=== PATIENT | male | born 1945 | race Caucasian/White ===

== ENCOUNTER 2016-10-04 11:07 | Inpatient (IN) | payer MEDICARE, OTHER ==
[~2016-10-04] VITALS: Ht 172.7 cm; Wt 72.6 kg
--- NOTE | 2016-10-04 11:49 | Diagnostic Imaging Report ---
Indication: Code stroke. Dizziness Technique: Contiguous 5 mm thick transaxial imaging of the head obtained in a Siemens Sensation [address] scanner. Soft tissue and bone windows generated. Total Dose length Product (DLP): [address] Dose Index Volume (CTDIvol): 70.38 mGy Comparison: none Findings: There is moderate prominence of the ventricles, basal cisterns, and cerebral sulci consistent with atrophy. Moderate, nonspecific, white matter hypoattenuation is noted throughout the brain consistent with chronic small vessel disease. There is no midline shift, edema, acute hemorrhage, mass effect, or abnormal extra-axial fluid collections. Bones and extra osseous soft tissues are unremarkable. Impression: No acute intracranial bleed, mass effect or edema. Moderate atrophy of the brain. Evidence of chronic small vessel disease involving white matter tracts. Critical value communication. Findings were discussed via telephone with Dr. Lafleur at 11:44, 10/04/[address] scanner at [facility], [place] is accredited by the [employer] and the scans are performed using protocols designed to limit radiation exposure to as low as reasonably achievable to attain images of sufficient resolution adequate for diagnostic evaluation.
--- NOTE | 2016-10-04 11:59 | Diagnostic Imaging Report ---
Indication: Chest Pain Comparison: None A single view chest radiograph was obtained. Findings: No definite infiltrate or pulmonary vascular congestion identified. The heart is enlarged. The aorta is mildly enlarged consistent with atherosclerotic vascular disease. The bones are osteopenic. Impression: No acute disease
[2016-10-04 12:05] LABS: BASOPHILS % (AUTO) 1.1 % (0.0-2.0); EOSINOPHILS % (AUTO) 3.5 % (0.0-3.0); LYMPHOCYTES % (AUTO) 18.9 % (20.0-45.0); MEAN CORPUSCULAR HEMOGLOBIN 29.2 PG (27.0-31.0); MEAN CORPUSCULAR HGB CONC 34.5 G/DL (32.0-36.0); MEAN CORPUSCULAR VOLUME 85 FL (80-99); MEAN PLATELET VOLUME 8.4 FL (6.5-10.1); MONOCYTES % (AUTO) 10.9 % (1.0-10.0); NEUTROPHILS % (AUTO) 65.5 % (45.0-75.0); PLATELET COUNT 269 K/UL (150-450); RED BLOOD COUNT 4.55 M/UL (4.70-6.10); RED CELL DISTRIBUTION WIDTH 11.2 % (11.6-14.8)
[2016-10-04 12:13] LABS: ALANINE AMINOTRANSFERASE 14 U/L (3-41); ALBUMIN/GLOBULIN RATIO 1.1 (1.0-2.7); ASPARTATE AMINO TRANSFERASE 17 U/L (5-40); CARBON DIOXIDE 28 mEQ/L (20-30); CREATININE 3.2 mg/dL (0.7-1.2); TROPONIN I < 0.30 ng/mL (<=0.30)
[2016-10-04 12:14] LABS: ANION GAP 12 (5-15); CALCIUM 15.1 mg/dL (8.6-10.2); CHLORIDE 95 mEQ/L (98-107); CHOLESTEROL 158 mg/dL (< 200); CHOLESTEROL/HDL RATIO 5.9 (3.3-4.4); HEMOLYSIS 5; LDL CHOLESTEROL (CALC.) 90 mg/dL (60-99); POTASSIUM 4.1 mEQ/L (3.4-4.9); SODIUM 135 mEQ/L (135-145)
[2016-10-04 12:20] LABS: PROTHROMBIN TIME 9.9 SEC (9.30-11.50)
[2016-10-04 12:23] VITALS: BP 140/80
[2016-10-04 12:24] LABS: CKMB 2.9 ng/mL (< 6.7)
[2016-10-04 13:08] VITALS: BP 129/86
--- NOTE | 2016-10-04 13:41 | Emergency Room Report ---
History of Present Illness General Chief Complaint: Stroke Symptoms Source: Patient Present Illness HPI 70-year-old male brought to ED for evaluation. Patient was brought to ER because his animal warden that he was having a stroke. States that for the last 5 days he's been having frequent falls, has hit his head on occasion. Patient denies any slurred speech or facial droop. Denies any dizziness, chest pain or shortness of breath. denies any weakness. No other aggravating or relieving factors. Denies any other associated symptoms Allergies: Coded Allergies: No Known Allergies (Unverified , 10/04/16) Patient History Past Medical History: none Past Surgical History: none Pertinent Family History: none Social History: Denies: alcohol use, drug use, smoking Immunizations: UTD Reviewed Nursing Documentation: PMH: Agreed, PSxH: Agreed Nursing Documentation-PMH Past Medical History: No Stated History Review of Systems All Other Systems: negative except mentioned in HPI Physical Exam Vital Signs Date Time Temp Pulse Resp B/P Pulse Ox O2 Delivery O2 Flow Rate FiO2 10/04/16 11:23 97.3 72 16 155/53 99 Room Air Sp02 EP Interpretation: reviewed, normal General Appearance: no apparent distress, alert, GCS 15, non-toxic Head: normocephalic Eyes: bilateral eye PERRL, bilateral eye normal inspection ENT: normal ENT inspection Neck: normal inspection Respiratory: chest non-tender, lungs clear, normal breath sounds, speaking full sentences Cardiovascular #1: regular rate, rhythm, no edema Gastrointestinal: normal bowel sounds, non tender, soft, non-distended, no guarding, no rebound Rectal: deferred Genitourinary: no CVA tenderness Musculoskeletal: normal inspection Neurologic: alert, oriented x3, responsive, line up machine operator III-XII nml as tested, motor strength/tone normal, sensory intact, cerebellar normal, speech normal Psychiatric: judgement/insight normal, memory normal, mood/affect normal, no suicidal/homicidal ideation Skin: normal inspection Lymphatic: normal inspection Medical Decision Making Diagnostic Impression: Primary Impression: Dizziness Additional Impressions: Unsteady gait ARF (acute renal failure) Qualified Codes: N17.9 - Acute kidney failure, unspecified Hypercalcemia ER Course Hospital Course 70-year-old male presents to ED with dizziness, frequent falls, head trauma Differential diagnoses include: AR/unstable angina, arrythmia, dehydration, CVA/ TIA Clinical course Patient placed on stretcher. on panama hat hydraulic press operator. After initial history and physical I ordered labs, EKG, chest x-ray, IVFs, CT Brain labs reviewed- no leukocytosis, hemoglobin/hematocrit ok, Cr 3.2, Calcium elevated, trop negative No focal neurological deficits suggestive of stroke EKG- NSR, no acute ischemic changes Chest x-ray- no acute process CT brain-unremarkable Case discussed with Dr. hoang and he agreed to accept the patient to his service for further care and support I. I feel this is a highly complex case requiring extensive working including EKG/Rhythm strip, Xray/CT/US, Blood/urine lab work, repeat exams while in ED, and administration of strong opiates/narcotics for pain control, admission to hospital or close patient follow up. Diagnosis - dizziness, unsteady gait, ARF, hypercalcemia admitted to telemetry in serious condition Labs Test 10/04/16 11:20 White Blood Count 9.0 K/UL (4.8-10.8) Red Blood Count 4.55 M/UL (4.70-6.10) Hemoglobin 13.3 G/DL (14.2-18.0) Hematocrit 38.5 % (42.0-52.0) Mean Corpuscular Volume 85 FL (80-99) Mean Corpuscular Hemoglobin 29.2 PG (27.0-31.0) Mean Corpuscular Hemoglobin Concent 34.5 G/DL (32.0-36.0) Red Cell Distribution Width 11.2 % (11.6-14.8) Platelet Count 269 K/UL (150-450) Mean Platelet Volume 8.4 FL (6.5-10.1) Neutrophils (%) (Auto) 65.5 % (45.0-75.0) Lymphocytes (%) (Auto) 18.9 % (20.0-45.0) Monocytes (%) (Auto) 10.9 % (1.0-10.0) Eosinophils (%) (Auto) 3.5 % (0.0-3.0) Basophils (%) (Auto) 1.1 % (0.0-2.0) Prothrombin Time 9.9 SEC (9.30-11.50) Prothromb Time International Ratio 1.0 (0.9-1.1) Activated Partial Thromboplast Time 23 SEC (23-33) Sodium Level 135 mEQ/L (135-145) Potassium Level 4.1 mEQ/L (3.4-4.9) Chloride Level 95 mEQ/L (98-107) Carbon Dioxide Level 28 mEQ/L (20-30) Anion Gap 12 (5-15) Blood Urea Nitrogen 49 mg/dL (7-23) Creatinine 3.2 mg/dL (0.7-1.2) Estimat Glomerular Filtration Rate mL/min (>60) Glucose Level 125 mg/dL (74-106) Calcium Level 15.1 mg/dL (8.6-10.2) Total Bilirubin 0.3 mg/dL (0.0-1.2) Aspartate Amino Transf (AST/SGOT) 17 U/L (5-40) Alanine Aminotransferase (ALT/SGPT) 14 U/L (3-41) Alkaline Phosphatase 79 U/L (40-129) Total Creatine Kinase 73 U/L (38-174) Creatine Kinase MB 2.9 ng/mL (< 6.7) Creatine Kinase MB Relative Index 3.9 Troponin I < 0.30 ng/mL (<=0.30) Total Protein 7.0 g/dL (6.6-8.7) Albumin 3.8 g/dL (3.5-5.2) Globulin 3.2 g/dL Albumin/Globulin Ratio 1.1 (1.0-2.7) Triglycerides Level 206 mg/dL (< 150) Cholesterol Level 158 mg/dL (< 200) LDL Cholesterol 90 mg/dL (60-99) HDL Cholesterol 27 mg/dL (> 60) Cholesterol/HDL Ratio 5.9 (3.3-4.4) EKG Diagnostic Results Rate: normal Rhythm: NSR ST Segments: other - RBBB ASA given to the pt in ED: No Rhythm Strip Diag. Results EP Interpretation: yes Rhythm: NSR, no PVC's, no ectopy Chest X-Ray Diagnostic Results EP Interpretation: Yes Findings: no consolidation, no effusion, no pneumothorax, no acute cardiopulmonary disease Number of Views: 1 CT/MRI/US Diagnostic Results CT/MRI/US Diagnostic Results : Imaging Test Ordered: CT A/P Impression no acute process Last Vital Signs Date Time Temp Pulse Resp B/P Pulse Ox O2 Delivery O2 Flow Rate FiO2 10/04/16 13:08 97.0 71 20 129/86 96 Room Air Status: improved Disposition: ADMITTED INPATIENT Condition: Serious Referrals: NOT CHOSEN IPA/,REFERRING (PCP) ASA [facility] M.D. Oct 04, 2016 13:41
[2016-10-04] MEDS ORDERED: VITAMIN D1000 UNI1 ORAL (14:08)
[2016-10-04 14:52] VITALS: BP 123/62
[2016-10-04] MEDS ORDERED: Mylanta II UD 30ml ORAL PRN (22:30)
[2016-10-04] MEDS ORDERED: Morphine Sulfate 2mg/ml Inj IVP PRN (22:30)
[2016-10-04] MEDS ORDERED: Miralax 17gm pkt ORAL PRN (22:30)
[2016-10-04] MEDS ORDERED: LORazepam Inj 2mg/ml 1ml IV PRN (22:30)
[2016-10-04] MEDS: D5NS 1,000 ML IV SCH (23:31)
[2016-10-05] VITALS (7 sets, daily range): BP systolic 130–190; BP diastolic 62–92
[2016-10-05] MEDS: Zolpidem 5mg tab ORAL PRN (00:37)
[2016-10-05] MEDS: D5NS 1,000 ML IV SCH ×3 (06:43→22:02)
[2016-10-05 07:22] LABS: APPEARANCE,URINE CLEAR; KETONES,URINE NEGATIVE (NEGATIVE); LEUKOCYTE ESTERASE ,URINE NEGATIVE (NEGATIVE); NITRITE,URINE NEGATIVE (NEGATIVE); PH,URINE 7 (4.5-8.0); PROTEIN,URINE 1+ (NEGATIVE); UROBILINOGEN,URINE NORMAL MG/DL (0.0-1.0)
[2016-10-05 07:36] LABS: BACTERIA,URINE OCCASIONAL /HPF; SQUAMOUS EPITHELIAL CELL,UR OCCASIONAL /LPF (NONE/OCC); WBC,URINE 0-2 /HPF (0 - 0)
[2016-10-05 08:27] LABS: BASOPHILS % (AUTO) 1.1 % (0.0-2.0); EOSINOPHILS % (AUTO) 4.8 % (0.0-3.0); LYMPHOCYTES % (AUTO) 23.7 % (20.0-45.0); MEAN CORPUSCULAR HEMOGLOBIN 29.6 PG (27.0-31.0); MEAN CORPUSCULAR HGB CONC 34.8 G/DL (32.0-36.0); MEAN CORPUSCULAR VOLUME 85 FL (80-99); MEAN PLATELET VOLUME 8.7 FL (6.5-10.1); MONOCYTES % (AUTO) 9.5 % (1.0-10.0); NEUTROPHILS % (AUTO) 60.9 % (45.0-75.0); PLATELET COUNT 265 K/UL (150-450); RED BLOOD COUNT 4.59 M/UL (4.70-6.10); RED CELL DISTRIBUTION WIDTH 11.3 % (11.6-14.8); WHITE BLOOD COUNT 7.3 K/UL (4.8-10.8)
[2016-10-05 08:52] LABS: FREE T3 3.2 pg/mL (2.3-4.2)
[2016-10-05 08:55] LABS: ALANINE AMINOTRANSFERASE 17 U/L (3-41); CHLORIDE 97 mEQ/L (98-107); CHOLESTEROL 165 mg/dL (< 200); CHOLESTEROL/HDL RATIO 5.9 (3.3-4.4); POTASSIUM 4.1 mEQ/L (3.4-4.9); SODIUM 138 mEQ/L (135-145)
[2016-10-05 08:57] LABS: MAGNESIUM 2.4 mg/dL (1.7-2.5); PHOSPHORUS 3.4 mg/dL (2.5-4.8); URIC ACID 8.2 mg/dL (3.0-7.5)
[2016-10-05] MEDS: Heparin 5000 units/ml inj SUBQ SCH ×2 (09:00→21:59)
[2016-10-05 09:03] LABS: HEMOGLOBIN A1C 5.5 % (< 6.0)
[2016-10-05 09:21] LABS: ALBUMIN/GLOBULIN RATIO 1.1 (1.0-2.7); ANION GAP 14 (5-15); ASPARTATE AMINO TRANSFERASE 17 U/L (5-40); CARBON DIOXIDE 27 mEQ/L (20-30); CREATININE 3.3 mg/dL (0.7-1.2); HEMOLYSIS 4; LDL CHOLESTEROL (CALC.) 100 mg/dL (60-99); TOTAL PROTEIN 7.2 g/dL (6.6-8.7)
[2016-10-05 09:50] LABS: CALCIUM 13.6 mg/dL (8.6-10.2)
--- NOTE | 2016-10-05 11:53 | Consultation ---
Consult Note Consult Note asked to eval for renal failure and hyperCalcemia Chief Complaint: Stroke Symptoms 70-year-old male brought to ED for evaluation. Patient was brought to ER because his insurance counsel that he was having a stroke. States that for the last 5 days he's been having frequent falls, has hit his head on occasion. Patient denies any slurred speech or facial droop. Denies any dizziness, chest pain or shortness of breath. denies any weakness. No other aggravating or relieving factors. Denies any other associated symptoms PH non obtainable Patinet interviewed , examined , Data reviewed . Assessment/Plan Status: ARF (acute renal failure), with possible underlying CKD Hypercalcemia Other: Dizziness Unsteady gait ARF (acute renal failure) Hypercalcemia Plan: Hydrate- Nasal Calcitonin IV Aredia Monitor Ca Phos and renal parameters- Kidney RAGHU CHAMBERLAIN Oct 05, 2016 11:53
--- NOTE | 2016-10-05 12:17 | Cardiology Progress Note ---
Assessment/Plan Assessment/Plan imbalance / fall hypercalcemia renal failure orthostatic vitals ivf as per renal consider neuro evlation for possible NPH Objective Last 24 Hour Vital Signs Date Time Temp Pulse Resp B/P Pulse Ox O2 Delivery O2 Flow Rate FiO2 10/05/16 08:00 96.9 77 18 151/87 96 Room Air 10/05/16 04:04 98.6 84 20 137/92 95 Room Air 10/05/16 04:00 73 10/05/16 00:16 98.1 80 21 130/79 97 Room Air 10/05/16 00:00 71 10/04/16 14:52 75 20 123/62 94 Room Air 10/04/16 13:08 97.0 71 20 129/86 96 Room Air 10/04/16 12:23 69 16 140/80 96 Room Air Intake and Output 10/04/16 10/05/16 18:59 06:59 Intake Total 1000 ml 892 ml Output Total 800 ml Balance 1000 ml 92 ml Intake Oral 0 ml IV Total 1000 ml 892 ml Output Urine Total 800 ml # Voids 1 Laboratory Tests Test 10/05/16 06:00 10/05/16 07:45 Urine Color Pale yellow Urine Appearance Clear Urine pH 7 (4.5-8.0) Urine Specific [place] 1.015 (1.005-1.035) Urine Protein 1+ (NEGATIVE) H Urine Glucose (UA) Negative (NEGATIVE) Urine Ketones Negative (NEGATIVE) Urine Occult Blood 2+ (NEGATIVE) H Urine Nitrite Negative (NEGATIVE) Urine Bilirubin Negative (NEGATIVE) Urine Urobilinogen Normal MG/DL (0.0-1.0) Urine Leukocyte Esterase Negative (NEGATIVE) Urine RBC 2-4 /HPF (0 - 0) H Urine WBC 0-2 /HPF (0 - 0) Urine Squamous Epithelial Cells Occasional /LPF Urine Bacteria Occasional /HPF (NONE) Urine Eosinophils Few Urine Osmolality Pending White Blood Count 7.3 K/UL (4.8-10.8) Red Blood Count 4.59 M/UL (4.70-6.10) L Hemoglobin 13.6 G/DL (14.2-18.0) L Hematocrit 39.0 % (42.0-52.0) L Mean Corpuscular Volume 85 FL (80-99) Mean Corpuscular Hemoglobin 29.6 PG (27.0-31.0) Mean Corpuscular Hemoglobin Concent 34.8 G/DL (32.0-36.0) Red Cell Distribution Width 11.3 % (11.6-14.8) L Platelet Count 265 K/UL (150-450) Mean Platelet Volume 8.7 FL (6.5-10.1) Neutrophils (%) (Auto) 60.9 % (45.0-75.0) Lymphocytes (%) (Auto) 23.7 % (20.0-45.0) Monocytes (%) (Auto) 9.5 % (1.0-10.0) Eosinophils (%) (Auto) 4.8 % (0.0-3.0) H Basophils (%) (Auto) 1.1 % (0.0-2.0) Sodium Level 138 mEQ/L (135-145) Potassium Level 4.1 mEQ/L (3.4-4.9) Chloride Level 97 mEQ/L (98-107) L Carbon Dioxide Level 27 mEQ/L (20-30) Anion Gap 14 (5-15) Blood Urea Nitrogen 46 mg/dL (7-23) H Creatinine 3.3 mg/dL (0.7-1.2) H Estimat Glomerular Filtration Rate mL/min (>60) Glucose Level 109 mg/dL (74-106) H Hemoglobin A1c 5.5 % (< 6.0) Plasma/Serum Osmolality Pending Uric Acid 8.2 mg/dL (3.0-7.5) H Calcium Level 13.6 mg/dL (8.6-10.2) *H Calcium (Send out) Pending Phosphorus Level 3.4 mg/dL (2.5-4.8) Magnesium Level 2.4 mg/dL (1.7-2.5) Total Bilirubin 0.5 mg/dL (0.0-1.2) Aspartate Amino Transf (AST/SGOT) 17 U/L (5-40) Alanine Aminotransferase (ALT/SGPT) 17 U/L (3-41) Alkaline Phosphatase 81 U/L (40-129) Total Creatine Kinase 73 U/L (38-174) Total Protein 7.2 g/dL (6.6-8.7) Albumin 3.9 g/dL (3.5-5.2) Globulin 3.3 g/dL Albumin/Globulin Ratio 1.1 (1.0-2.7) Triglycerides Level 185 mg/dL (< 150) H Cholesterol Level 165 mg/dL (< 200) LDL Cholesterol 100 mg/dL (60-99) H HDL Cholesterol 28 mg/dL (> 60) Cholesterol/HDL Ratio 5.9 (3.3-4.4) H Thyroid Stimulating Hormone (TSH) 3.420 uIU/mL (0.300-4.500) Free Thyroxine 1.31 ng/dL (0.86-1.85) Free Triiodothyronine 3.2 pg/mL (2.3-4.2) Parathyroid Hormone (Intact) Pending Cortisol Pending GILMA BRITTON Oct 05, 2016 12:17
--- NOTE | 2016-10-05 13:14 | History and Physical ---
History of Present Illness General Date patient seen: Oct 05, 2016 Reason for Hospitalization: Stroke Symptoms Present Illness HPI 70-year-old male brought in by paramedics to ED for evaluation of possible stroke. For the last 5 days he's been having frequent falls, has hit his head on occasion. Patient blames his shoes for the episodes of fall. Denies any dizziness, chest pain or shortness of breath. denies any weakness. No other aggravating or relieving factors. He was found to have an elevated Ca and admitted for further work up. Allergies: Coded Allergies: No Known Allergies (Unverified , 10/04/16) Medication History Scheduled Cholecalciferol (Vitamin D3)* (Vitamin D*), Unknown Dose ORAL DAILY, (Reported) Patient History Healthcare decision maker pt alert and oriented Resuscitation status Advanced Directive on File Past Medical/Surgical History Past Medical/Surgical History: (1) Unsteady gait Review of Systems All Other Systems: negative except mentioned in HPI Physical Exam General Appearance: WD/WN Lines, tubes and drains: peripheral, central line HEENT: normocephalic, atraumatic Neck: non-tender, normal alignment Respiratory/Chest: chest wall non-tender, lungs clear Cardiovascular/Chest: normal peripheral pulses Genitourinary/Rectal: normal genital exam Extremities: normal range of motion Last 24 Hour Vital Signs Date Time Temp Pulse Resp B/P Pulse Ox O2 Delivery O2 Flow Rate FiO2 10/05/16 12:00 97.1 16 190/62 98 Room Air 10/05/16 08:00 96.9 77 18 151/87 96 Room Air 10/05/16 04:04 98.6 84 20 137/92 95 Room Air 10/05/16 04:00 73 10/05/16 00:16 98.1 80 21 130/79 97 Room Air 10/05/16 00:00 71 10/04/16 14:52 75 20 123/62 94 Room Air Intake and Output 10/04/16 10/05/16 19:00 07:00 Intake Total 1000 ml 932 ml Output Total 800 ml Balance 1000 ml 132 ml Intake Oral 0 ml IV Total 1000 ml 932 ml Output Urine Total 800 ml # Voids 1 Laboratory Tests Test 10/05/16 06:00 10/05/16 07:45 Urine Color Pale yellow Urine Appearance Clear Urine pH 7 (4.5-8.0) Urine Specific [place] 1.015 (1.005-1.035) Urine Protein 1+ (NEGATIVE) H Urine Glucose (UA) Negative (NEGATIVE) Urine Ketones Negative (NEGATIVE) Urine Occult Blood 2+ (NEGATIVE) H Urine Nitrite Negative (NEGATIVE) Urine Bilirubin Negative (NEGATIVE) Urine Urobilinogen Normal MG/DL (0.0-1.0) Urine Leukocyte Esterase Negative (NEGATIVE) Urine RBC 2-4 /HPF (0 - 0) H Urine WBC 0-2 /HPF (0 - 0) Urine Squamous Epithelial Cells Occasional /LPF Urine Bacteria Occasional /HPF (NONE) Urine Eosinophils Few Urine Osmolality Pending White Blood Count 7.3 K/UL (4.8-10.8) Red Blood Count 4.59 M/UL (4.70-6.10) L Hemoglobin 13.6 G/DL (14.2-18.0) L Hematocrit 39.0 % (42.0-52.0) L Mean Corpuscular Volume 85 FL (80-99) Mean Corpuscular Hemoglobin 29.6 PG (27.0-31.0) Mean Corpuscular Hemoglobin Concent 34.8 G/DL (32.0-36.0) Red Cell Distribution Width 11.3 % (11.6-14.8) L Platelet Count 265 K/UL (150-450) Mean Platelet Volume 8.7 FL (6.5-10.1) Neutrophils (%) (Auto) 60.9 % (45.0-75.0) Lymphocytes (%) (Auto) 23.7 % (20.0-45.0) Monocytes (%) (Auto) 9.5 % (1.0-10.0) Eosinophils (%) (Auto) 4.8 % (0.0-3.0) H Basophils (%) (Auto) 1.1 % (0.0-2.0) Sodium Level 138 mEQ/L (135-145) Potassium Level 4.1 mEQ/L (3.4-4.9) Chloride Level 97 mEQ/L (98-107) L Carbon Dioxide Level 27 mEQ/L (20-30) Anion Gap 14 (5-15) Blood Urea Nitrogen 46 mg/dL (7-23) H Creatinine 3.3 mg/dL (0.7-1.2) H Estimat Glomerular Filtration Rate mL/min (>60) Glucose Level 109 mg/dL (74-106) H Hemoglobin A1c 5.5 % (< 6.0) Plasma/Serum Osmolality Pending Uric Acid 8.2 mg/dL (3.0-7.5) H Calcium Level 13.6 mg/dL (8.6-10.2) *H Calcium (Send out) Pending Phosphorus Level 3.4 mg/dL (2.5-4.8) Magnesium Level 2.4 mg/dL (1.7-2.5) Total Bilirubin 0.5 mg/dL (0.0-1.2) Aspartate Amino Transf (AST/SGOT) 17 U/L (5-40) Alanine Aminotransferase (ALT/SGPT) 17 U/L (3-41) Alkaline Phosphatase 81 U/L (40-129) Total Creatine Kinase 73 U/L (38-174) Total Protein 7.2 g/dL (6.6-8.7) Albumin 3.9 g/dL (3.5-5.2) Globulin 3.3 g/dL Albumin/Globulin Ratio 1.1 (1.0-2.7) Triglycerides Level 185 mg/dL (< 150) H Cholesterol Level 165 mg/dL (< 200) LDL Cholesterol 100 mg/dL (60-99) H HDL Cholesterol 28 mg/dL (> 60) Cholesterol/HDL Ratio 5.9 (3.3-4.4) H Thyroid Stimulating Hormone (TSH) 3.420 uIU/mL (0.300-4.500) Free Thyroxine 1.31 ng/dL (0.86-1.85) Free Triiodothyronine 3.2 pg/mL (2.3-4.2) Parathyroid Hormone (Intact) Pending Cortisol Pending Height (Feet): 5 Height (Inches): 8.00 Weight (Pounds): 160 Medications Current Medications Medications (Trade) Dose Ordered Sig/Leta Route PRN Reason Start Time Stop Time Status Last Admin Dose Admin Acetaminophen (Tylenol) 650 mg Q4H PRN ORAL fever 10/04/16 22:30 11/03/16 22:29 Clonidine HCl 0.1 mg 0.1 mg Q4H PRN ORAL For High Blood Pressure 10/04/16 22:30 11/03/16 22:29 Dextrose (Dextrose 50%) STAT PRN IV Hypoglycemia 10/04/16 22:30 11/03/16 22:29 Dextrose/Sodium Chloride (D5ns) 1,000 ml @ 125 mls/hr Q8H IV 10/04/16 22:30 11/03/16 22:29 10/05/16 06:43 Heparin Sodium (Porcine) (Heparin 5000 units/ml) 5,000 units EVERY 12 HOURS SUBQ 10/05/16 09:00 11/04/16 08:59 Lorazepam (Ativan 2mg/ml 1ml) 0.5 mg Q4H PRN IV For Anxiety 10/04/16 22:30 10/11/16 22:29 Morphine Sulfate (Morphine Sulfate) 1 mg EVERY 4 HOURS PRN IVP For Pain 10/04/16 22:30 10/11/16 22:29 Ondansetron HCl (Zofran) 4 mg Q6H PRN IVP Nausea & Vomiting 10/04/16 22:30 11/03/16 22:29 Pamidronate Disodium/Sodium Chloride (Aredia/NS) 550 ml @ 137.5 mls/ hr ONCE ONCE IVPB 10/05/16 14:00 10/05/16 17:59 Polyethylene Glycol (Miralax) 17 gm HSPRN PRN ORAL Constipation 10/04/16 22:30 11/03/16 22:29 Tamsulosin HCl 0.4 mg 0.4 mg Q12HR ORAL 10/05/16 13:00 11/04/16 12:59 Zolpidem Tartrate (Ambien) 5 mg HSPRN PRN ORAL Insomnia 10/04/16 22:30 11/03/16 22:29 10/05/16 00:37 Assessment/Plan Problem List: (1) Acute encephalopathy ICD Codes: G93.40 - Encephalopathy, unspecified SNOMED: 6651911 (2) Hypercalcemia ICD Codes: E83.52 - Hypercalcemia SNOMED: 32304866, [id number] Assessment/Plan telemetry monitoring echo carotid artery US IV fluids hypercalcemia w/u, r/o malignancy, r/o hyperparathyroidism. pt/ot SILVINA ORELLANA Oct 05, 2016 13:14
[2016-10-05] MEDS: Tamsulosin 0.4mg cap ORAL SCH ×2 (13:20→21:58)
[2016-10-05] MEDS ORDERED: Pamidronate Disodium Inj 60 MG in Sodium Chloride 550 ML IVPB ONE (14:00)
[2016-10-05] MEDS ORDERED: D5NS 1000ml IV ONE (18:47)
[2016-10-06] VITALS (7 sets, daily range): BP systolic 110–149; BP diastolic 66–88
[2016-10-06] MEDS: D5NS 1,000 ML IV SCH ×4 (06:27→22:00)
[2016-10-06 07:56] LABS: EOSINOPHILS % (AUTO) 5.9 % (0.0-3.0); LYMPHOCYTES % (AUTO) 22.1 % (20.0-45.0); MEAN CORPUSCULAR HEMOGLOBIN 29.7 PG (27.0-31.0); MEAN CORPUSCULAR VOLUME 85 FL (80-99); MEAN PLATELET VOLUME 8.4 FL (6.5-10.1); MONOCYTES % (AUTO) 10.8 % (1.0-10.0); NEUTROPHILS % (AUTO) 60.3 % (45.0-75.0); PLATELET COUNT 221 K/UL (150-450); RED BLOOD COUNT 4.12 M/UL (4.70-6.10); RED CELL DISTRIBUTION WIDTH 11.2 % (11.6-14.8); WHITE BLOOD COUNT 6.4 K/UL (4.8-10.8)
[2016-10-06 08:08] LABS: ALANINE AMINOTRANSFERASE 14 U/L (3-41); ALBUMIN/GLOBULIN RATIO 1.2 (1.0-2.7); ANION GAP 10 (5-15); ASPARTATE AMINO TRANSFERASE 13 U/L (5-40); CALCIUM 12.4 mg/dL (8.6-10.2); CARBON DIOXIDE 29 mEQ/L (20-30); CHLORIDE 102 mEQ/L (98-107); CREATININE 3.1 mg/dL (0.7-1.2); CRP QUANT 0.7 mg/dL (< 0.5); HEMOLYSIS 5; MAGNESIUM 2.2 mg/dL (1.7-2.5); PHOSPHORUS 2.9 mg/dL (2.5-4.8); POTASSIUM 3.9 mEQ/L (3.4-4.9); SODIUM 141 mEQ/L (135-145); TOTAL PROTEIN 6.4 g/dL (6.6-8.7); URIC ACID 7.8 mg/dL (3.0-7.5)
[2016-10-06] MEDS: Heparin 5000 units/ml inj SUBQ SCH ×2 (08:46→20:44)
[2016-10-06 09:08] LABS: CORTISOL LC 14.1 ug/dL (.)
[2016-10-06] MEDS: Tamsulosin 0.4mg cap ORAL SCH ×2 (09:08→20:41)
--- NOTE | 2016-10-06 13:11 | General Progress Note ---
Assessment/Plan Status: stable Status Narrative Cr lower- Ca lower Assessment/Plan ARF (acute renal failure), with possible underlying CKD Severe Hypercalcemia Other: Dizziness Unsteady gait ARF (acute renal failure) Hypercalcemia Plan: Hydrate- Nasal Calcitonin IV Aredia given 10/05/16 Monitor Ca Phos and renal parameters- Kidney CHRISTOPHER- pending One dose IV lasix Subjective ROS Limited/Unobtainable: No Constitutional: Reports: malaise Allergies: Coded Allergies: No Known Allergies (Unverified , 10/04/16) Objective Last 24 Hour Vital Signs Date Time Temp Pulse Resp B/P Pulse Ox O2 Delivery O2 Flow Rate FiO2 10/06/16 12:00 84 10/06/16 11:55 89 10/06/16 11:50 97.0 77 18 124/74 97 Room Air 10/06/16 11:50 77 10/06/16 08:09 97.0 82 20 149/88 97 Room Air 10/06/16 04:15 98.5 81 20 149/86 94 Room Air 10/06/16 04:00 73 10/06/16 00:05 78 80 91 10/06/16 00:04 98.8 78 21 142/78 95 Room Air 10/06/16 00:00 74 10/05/16 22:46 78 86 90 10/05/16 20:00 94 10/05/16 20:00 97.3 86 20 144/75 97 Room Air 10/05/16 16:00 74 10/05/16 16:00 97.5 79 20 135/76 96 Room Air Intake and Output 10/05/16 10/06/16 19:00 07:00 Intake Total 1635 ml 1000 ml Output Total 760 ml 700 ml Balance 875 ml 300 ml Intake Oral 560 ml IV Total 1075 ml 1000 ml Output Urine Total 760 ml 700 ml # Voids 3 2 Laboratory Tests 10/06/16 06:55: White Blood Count 6.4, Red Blood Count 4.12L, Hemoglobin 12.2L, Hematocrit 35.0L , Mean Corpuscular Volume 85, Mean Corpuscular Hemoglobin 29.7, Mean Corpuscular Hemoglobin Concent 35.0, Red Cell Distribution Width 11.2L, Platelet Count 221, Mean Platelet Volume 8.4, Neutrophils (%) (Auto) 60.3, Lymphocytes (%) (Auto) 22.1, Monocytes (%) (Auto) 10.8H, Eosinophils (%) (Auto) 5.9H, Basophils (%) (Auto) 1.0, Sodium Level 141, Potassium Level 3.9, Chloride Level 102, Carbon Dioxide Level 29, Anion Gap 10, Blood Urea Nitrogen 41H, Creatinine 3.1H, Estimat Glomerular Filtration Rate , Glucose Level 99, Uric Acid 7.8H, Calcium Level 12.4H, Phosphorus Level 2.9, Magnesium Level 2.2, Total Bilirubin 0.4, Gamma Glutamyl Transpeptidase 21, Aspartate Amino Transf ( AST/SGOT) 13, Alanine Aminotransferase (ALT/SGPT) 14, Alkaline Phosphatase 71, Total Creatine Kinase 75, C-Reactive Protein, Quantitative 0.7H, Pro-B-Type Natriuretic Peptide 1873H, Total Protein 6.4L, Albumin 3.6, Globulin 2.8, Albumin/Globulin Ratio 1.2 Height (Feet): 5 Height (Inches): 8.00 Weight (Pounds): 160 General Appearance: no apparent distress Cardiovascular: normal rate Respiratory/Chest: decreased breath sounds Abdomen: soft, distended RAGHU ANGELO Oct 06, 2016 13:10
[2016-10-06 13:18] LABS: PTH INTACT 16 pg/mL (15-65)
--- NOTE | 2016-10-06 15:06 | Pulmonology Progress Note ---
Assessment/Plan Problems: (1) Acute encephalopathy (2) Hypercalcemia (3) ATN (acute tubular necrosis) Assessment/Plan iv fluids check bun/creatinine renal studies pt/ot dc in 1-2 days Subjective ROS Limited/Unobtainable: No Constitutional: Reports: no symptoms HEENT: Repors: no symptoms Respiratory: Reports: no symptoms Allergies: Coded Allergies: No Known Allergies (Unverified , 10/04/16) Objective Last 24 Hour Vital Signs Date Time Temp Pulse Resp B/P Pulse Ox O2 Delivery O2 Flow Rate FiO2 10/06/16 12:00 84 10/06/16 11:57 80 10/06/16 11:55 89 10/06/16 11:50 97.0 77 18 124/74 97 Room Air 10/06/16 11:50 77 10/06/16 08:09 97.0 82 20 149/88 97 Room Air 10/06/16 08:02 76 10/06/16 04:15 98.5 81 20 149/86 94 Room Air 10/06/16 04:00 73 10/06/16 00:05 78 80 91 10/06/16 00:04 98.8 78 21 142/78 95 Room Air 10/06/16 00:00 74 10/05/16 22:46 78 86 90 10/05/16 20:00 94 10/05/16 20:00 97.3 86 20 144/75 97 Room Air 10/05/16 16:00 74 10/05/16 16:00 97.5 79 20 135/76 96 Room Air Intake and Output 10/05/16 10/06/16 19:00 07:00 Intake Total 1635 ml 1000 ml Output Total 760 ml 700 ml Balance 875 ml 300 ml Intake Oral 560 ml IV Total 1075 ml 1000 ml Output Urine Total 760 ml 700 ml # Voids 3 2 Objective General Appearance: WD/WN Lines, tubes and drains: peripheral, central line HEENT: normocephalic, atraumatic Neck: non-tender, normal alignment Respiratory/Chest: chest wall non-tender, lungs clear Cardiovascular/Chest: normal peripheral pulses Genitourinary/Rectal: normal genital exam Extremities: normal range of motion Laboratory Tests 10/06/16 06:55: White Blood Count 6.4, Red Blood Count 4.12L, Hemoglobin 12.2L, Hematocrit 35.0L , Mean Corpuscular Volume 85, Mean Corpuscular Hemoglobin 29.7, Mean Corpuscular Hemoglobin Concent 35.0, Red Cell Distribution Width 11.2L, Platelet Count 221, Mean Platelet Volume 8.4, Neutrophils (%) (Auto) 60.3, Lymphocytes (%) (Auto) 22.1, Monocytes (%) (Auto) 10.8H, Eosinophils (%) (Auto) 5.9H, Basophils (%) (Auto) 1.0, Sodium Level 141, Potassium Level 3.9, Chloride Level 102, Carbon Dioxide Level 29, Anion Gap 10, Blood Urea Nitrogen 41H, Creatinine 3.1H, Estimat Glomerular Filtration Rate , Glucose Level 99, Uric Acid 7.8H, Calcium Level 12.4H, Phosphorus Level 2.9, Magnesium Level 2.2, Total Bilirubin 0.4, Gamma Glutamyl Transpeptidase 21, Aspartate Amino Transf ( AST/SGOT) 13, Alanine Aminotransferase (ALT/SGPT) 14, Alkaline Phosphatase 71, Total Creatine Kinase 75, C-Reactive Protein, Quantitative 0.7H, Pro-B-Type Natriuretic Peptide 1873H, Total Protein 6.4L, Albumin 3.6, Globulin 2.8, Albumin/Globulin Ratio 1.2 Current Medications Medications (Trade) Dose Ordered Sig/Leta Route PRN Reason Start Time Stop Time Status Last Admin Dose Admin Acetaminophen (Tylenol) 650 mg Q4H PRN ORAL fever 10/04/16 22:30 11/03/16 22:29 Calcitonin [place] (Miacalcin) 1 sprays DAILY NASAL 10/06/16 15:00 11/05/16 14:59 10/06/16 14:47 Clonidine HCl (Catapres) 0.1 mg Q4H PRN ORAL For High Blood Pressure 10/04/16 22:30 11/03/16 22:29 Dextrose (Dextrose 50%) STAT PRN IV Hypoglycemia 10/04/16 22:30 11/03/16 22:29 Dextrose/Sodium Chloride (D5ns) 1,000 ml @ 150 mls/hr Q6H40M IV 10/06/16 14:00 11/05/16 13:59 10/06/16 13:42 Heparin Sodium (Porcine) (Heparin 5000 units/ml) 5,000 units EVERY 12 HOURS SUBQ 10/05/16 09:00 11/04/16 08:59 10/05/16 21:59 Lorazepam (Ativan 2mg/ml 1ml) 0.5 mg Q4H PRN IV For Anxiety 10/04/16 22:30 10/11/16 22:29 Morphine Sulfate (Morphine Sulfate) 1 mg EVERY 4 HOURS PRN IVP For Pain 10/04/16 22:30 10/11/16 22:29 Ondansetron HCl (Zofran) 4 mg Q6H PRN IVP Nausea & Vomiting 10/04/16 22:30 11/03/16 22:29 Polyethylene Glycol (Miralax) 17 gm HSPRN PRN ORAL Constipation 10/04/16 22:30 11/03/16 22:29 Tamsulosin HCl 0.4 mg 0.4 mg Q12HR ORAL 10/05/16 13:00 11/04/16 12:59 10/06/16 09:08 Zolpidem Tartrate (Ambien) 5 mg HSPRN PRN ORAL Insomnia 10/04/16 22:30 11/03/16 22:29 10/05/16 00:37 SILVINA ORELLANA Oct 06, 2016 15:06
--- NOTE | 2016-10-06 16:19 | Diagnostic Imaging Report ---
Indication:Elevated Bun and Creatinine. Technique: Grayscale and duplex Doppler imaging of the kidneys performed. Comparison: None Findings: There is suggestion of a small cyst in the lower pole the right kidney measuring 1.5 cm. Questionable tiny stone in the right kidney noted. The echogenic focus is very peripheral, into question whether this is a stone or a focus of other parenchymal calcification. There is early no hydronephrosis. Urinary bladder and IVC are unremarkable in appearance. Both kidneys are about 12 cm in size. The renal pyramids are hypoechoic. Impression: Right renal cyst. No evidence of obstructive nephropathy. Tiny peripheral calcification in the right kidney, nonspecific. This is doubtful to represent a nonobstructive stone
--- NOTE | 2016-10-06 20:19 | Cardiology Progress Note ---
Assessment/Plan Assessment/Plan imbalance / fall hypercalcemia renal failure orthostatic vitals ivf as per renal consider neuro evlation for possible NPH rxn for hypercalcemia tele neg he still seem off balbnce on standign Subjective Cardiovascular: Denies: chest pain, irregular heart rate Respiratory: Denies: SOB with excertion, shortness of breath Gastrointestinal/Abdominal: Denies: abdominal pain Objective Last 24 Hour Vital Signs Date Time Temp Pulse Resp B/P Pulse Ox O2 Delivery O2 Flow Rate FiO2 10/06/16 16:40 82 10/06/16 16:35 88 10/06/16 16:30 80 10/06/16 16:21 97.0 80 20 119/66 96 Room Air 10/06/16 15:20 83 10/06/16 12:00 84 10/06/16 11:57 80 10/06/16 11:55 89 10/06/16 11:50 97.0 77 18 124/74 97 Room Air 10/06/16 11:50 77 10/06/16 08:09 97.0 82 20 149/88 97 Room Air 10/06/16 08:02 76 10/06/16 04:15 98.5 81 20 149/86 94 Room Air 10/06/16 04:00 73 10/06/16 00:05 78 80 91 10/06/16 00:04 98.8 78 21 142/78 95 Room Air 10/06/16 00:00 74 10/05/16 22:46 78 86 90 General Appearance: no apparent distress, alert Neck: no JVD Cardiovascular: normal rate, regular rhythm Respiratory/Chest: lungs clear, normal breath sounds Abdomen: normal bowel sounds, non tender, soft Extremities: no swelling Intake and Output 10/05/16 10/06/16 19:00 07:00 Intake Total 1635 ml 1000 ml Output Total 760 ml 700 ml Balance 875 ml 300 ml Intake Oral 560 ml IV Total 1075 ml 1000 ml Output Urine Total 760 ml 700 ml # Voids 3 2 Laboratory Tests Test 10/06/16 06:55 White Blood Count 6.4 K/UL (4.8-10.8) Red Blood Count 4.12 M/UL (4.70-6.10) L Hemoglobin 12.2 G/DL (14.2-18.0) L Hematocrit 35.0 % (42.0-52.0) L Mean Corpuscular Volume 85 FL (80-99) Mean Corpuscular Hemoglobin 29.7 PG (27.0-31.0) Mean Corpuscular Hemoglobin Concent 35.0 G/DL (32.0-36.0) Red Cell Distribution Width 11.2 % (11.6-14.8) L Platelet Count 221 K/UL (150-450) Mean Platelet Volume 8.4 FL (6.5-10.1) Neutrophils (%) (Auto) 60.3 % (45.0-75.0) Lymphocytes (%) (Auto) 22.1 % (20.0-45.0) Monocytes (%) (Auto) 10.8 % (1.0-10.0) H Eosinophils (%) (Auto) 5.9 % (0.0-3.0) H Basophils (%) (Auto) 1.0 % (0.0-2.0) Sodium Level 141 mEQ/L (135-145) Potassium Level 3.9 mEQ/L (3.4-4.9) Chloride Level 102 mEQ/L (98-107) Carbon Dioxide Level 29 mEQ/L (20-30) Anion Gap 10 (5-15) Blood Urea Nitrogen 41 mg/dL (7-23) H Creatinine 3.1 mg/dL (0.7-1.2) H Estimat Glomerular Filtration Rate mL/min (>60) Glucose Level 99 mg/dL (74-106) Uric Acid 7.8 mg/dL (3.0-7.5) H Calcium Level 12.4 mg/dL (8.6-10.2) H Phosphorus Level 2.9 mg/dL (2.5-4.8) Magnesium Level 2.2 mg/dL (1.7-2.5) Total Bilirubin 0.4 mg/dL (0.0-1.2) Gamma Glutamyl Transpeptidase 21 U/L (8-61) Aspartate Amino Transf (AST/SGOT) 13 U/L (5-40) Alanine Aminotransferase (ALT/SGPT) 14 U/L (3-41) Alkaline Phosphatase 71 U/L (40-129) Total Creatine Kinase 75 U/L (38-174) C-Reactive Protein, Quantitative 0.7 mg/dL (< 0.5) H Pro-B-Type Natriuretic Peptide 1873 pg/mL (0-125) H Total Protein 6.4 g/dL (6.6-8.7) L Albumin 3.6 g/dL (3.5-5.2) Globulin 2.8 g/dL Albumin/Globulin Ratio 1.2 (1.0-2.7) GILMA BRITTON Oct 06, 2016 20:19
[2016-10-06] MEDS: Zolpidem 5mg tab ORAL PRN (21:03)
[2016-10-06] MEDS ORDERED: Zolpidem 5mg tab ORAL PRN (22:30)
[2016-10-06] MEDS ORDERED: Miralax 17gm pkt ORAL PRN (22:30)
[2016-10-06] MEDS ORDERED: LORazepam Inj 2mg/ml 1ml IV PRN (22:30)
[2016-10-07] VITALS: BP 131/70
[2016-10-07] MEDS ORDERED: Morphine Sulfate 2mg/ml Inj IVP PRN (01:00)
[2016-10-07 04:00] VITALS: BP 130/78
[2016-10-07] MEDS: D5NS 1,000 ML IV SCH ×4 (05:00→23:32)
[2016-10-07 07:27] LABS: ALANINE AMINOTRANSFERASE 14 U/L (3-41); ALBUMIN/GLOBULIN RATIO 1.3 (1.0-2.7); ANION GAP 13 (5-15); ASPARTATE AMINO TRANSFERASE 16 U/L (5-40); CALCIUM 11.8 mg/dL (8.6-10.2); CARBON DIOXIDE 27 mEQ/L (20-30); CHLORIDE 101 mEQ/L (98-107); CREATININE 2.9 mg/dL (0.7-1.2); HEMOLYSIS 10; PHOSPHORUS 3.2 mg/dL (2.5-4.8); POTASSIUM 3.5 mEQ/L (3.4-4.9); SODIUM 141 mEQ/L (135-145); TOTAL PROTEIN 6.3 g/dL (6.6-8.7)
[2016-10-07 08:35] VITALS: BP 138/70
[2016-10-07] MEDS: Tamsulosin 0.4mg cap ORAL SCH ×2 (09:32→21:02)
[2016-10-07] MEDS: Heparin 5000 units/ml inj SUBQ SCH ×2 (09:36→21:05)
--- NOTE | 2016-10-07 10:58 | Cardiology Report ---
APPROVED REPORT EKG Measurement Heart [id number] Normal sinus rhythm Left axis deviation Incomplete right bundle branch block Nonspecific ST and T wave abnormality Abnormal ECG
[2016-10-07 11:24] VITALS: BP 115/70
--- NOTE | 2016-10-07 12:27 | General Progress Note ---
Assessment/Plan Status: unchanged Status Narrative cr lower 2.9- Serum Ca lowering Assessment/Plan ARF (acute renal failure), with possible underlying CKD Severe Hypercalcemia Other: Dizziness Unsteady gait ARF (acute renal failure) Hypercalcemia Plan: Hydrate- Nasal Calcitonin IV Aredia given 10/05/16 Monitor Ca Phos and renal parameters- Kidney CHRISTOPHER- Right renal cyst. No evidence of obstructive nephropathy. Tiny peripheral calcification in the right kidney, nonspecific. This is doubtful to represent a nonobstructive stone One dose IV lasix again today Subjective ROS Limited/Unobtainable: No Constitutional: Reports: malaise, weakness Allergies: Coded Allergies: No Known Allergies (Unverified , 10/04/16) Objective Last 24 Hour Vital Signs Date Time Temp Pulse Resp B/P Pulse Ox O2 Delivery O2 Flow Rate FiO2 10/07/16 11:24 98.6 64 20 115/70 93 Room Air 10/07/16 08:35 98.6 75 21 138/70 95 Room Air 10/07/16 04:00 98.2 72 18 130/78 96 Room Air 10/07/16 00:00 98.1 79 18 131/70 98 Room Air 10/06/16 22:00 97.7 87 20 144/87 93 Room Air 10/06/16 20:00 97.0 87 20 110/67 94 Room Air 10/06/16 16:40 82 10/06/16 16:35 88 10/06/16 16:30 80 10/06/16 16:21 97.0 80 20 119/66 96 Room Air 10/06/16 15:20 83 Intake and Output 10/06/16 10/07/16 19:00 07:00 Intake Total 2010 ml 300 ml Output Total 1675 ml 350 ml Balance 335 ml -50 ml Intake Oral 360 ml IV Total 1650 ml 300 ml Output Urine Total 1675 ml 350 ml # Voids 5 3 Laboratory Tests 10/07/16 06:11: Sodium Level 141, Potassium Level 3.5, Chloride Level 101, Carbon Dioxide Level 27, Anion Gap 13, Blood Urea Nitrogen 35H, Creatinine 2.9H, Estimat Glomerular Filtration Rate , Glucose Level 118H, Uric Acid 7.0, Calcium Level 11.8H, Phosphorus Level 3.2, Magnesium Level 2.0, Total Bilirubin 0.3, Aspartate Amino Transf (AST/SGOT) 16, Alanine Aminotransferase (ALT/SGPT) 14, Alkaline Phosphatase 70, Pro-B-Type Natriuretic Peptide 1572H, Total Protein 6.3L, Albumin 3.6, Globulin 2.7, Albumin/Globulin Ratio 1.3 Height (Feet): 5 Height (Inches): 8.00 Weight (Pounds): 160 General Appearance: no apparent distress Cardiovascular: normal rate Respiratory/Chest: decreased breath sounds Abdomen: soft, distended Objective other physical exam not changed RAGHU ANGELO Oct 07, 2016 12:27
[2016-10-07] MEDS ORDERED: D5NS 1000ml IV ONE (15:16)
[2016-10-07 15:39] VITALS: BP 137/79
[2016-10-07 20:00] VITALS: BP 140/80
--- NOTE | 2016-10-07 22:22 | Pulmonology Progress Note ---
Assessment/Plan Problems: (1) Acute encephalopathy (2) Hypercalcemia (3) ATN (acute tubular necrosis) Assessment/Plan iv fluids check bun/creatinine renal studies pt/ot dc in 1-2 days Subjective Allergies: Coded Allergies: No Known Allergies (Unverified , 10/04/16) Objective Last 24 Hour Vital Signs Date Time Temp Pulse Resp B/P Pulse Ox O2 Delivery O2 Flow Rate FiO2 10/07/16 20:00 99.1 82 18 140/80 96 Room Air 10/07/16 15:39 98.1 80 16 137/79 95 Room Air 10/07/16 11:24 98.6 64 20 115/70 93 Room Air 10/07/16 08:35 98.6 75 21 138/70 95 Room Air 10/07/16 04:00 98.2 72 18 130/78 96 Room Air 10/07/16 00:00 98.1 79 18 131/70 98 Room Air Intake and Output 10/06/16 10/07/16 19:00 07:00 Intake Total 2010 ml 450 ml Output Total 1675 ml 350 ml Balance 335 ml 100 ml Intake Oral 360 ml IV Total 1650 ml 450 ml Output Urine Total 1675 ml 350 ml # Voids 5 3 Objective General Appearance: WD/WN Lines, tubes and drains: peripheral, central line HEENT: normocephalic, atraumatic Neck: non-tender, normal alignment Respiratory/Chest: chest wall non-tender, lungs clear Cardiovascular/Chest: normal peripheral pulses Genitourinary/Rectal: normal genital exam Extremities: normal range of motion Laboratory Tests 10/07/16 06:11: Sodium Level 141, Potassium Level 3.5, Chloride Level 101, Carbon Dioxide Level 27, Anion Gap 13, Blood Urea Nitrogen 35H, Creatinine 2.9H, Estimat Glomerular Filtration Rate , Glucose Level 118H, Uric Acid 7.0, Calcium Level 11.8H, Phosphorus Level 3.2, Magnesium Level 2.0, Total Bilirubin 0.3, Aspartate Amino Transf (AST/SGOT) 16, Alanine Aminotransferase (ALT/SGPT) 14, Alkaline Phosphatase 70, Pro-B-Type Natriuretic Peptide 1572H, Total Protein 6.3L, Albumin 3.6, Globulin 2.7, Albumin/Globulin Ratio 1.3 Current Medications Medications (Trade) Dose Ordered Sig/Leta Route PRN Reason Start Time Stop Time Status Last Admin Dose Admin Acetaminophen (Tylenol) 650 mg Q4H PRN ORAL fever 10/06/16 22:30 11/05/16 22:29 Calcitonin [place] (Miacalcin) 1 sprays DAILY NASAL 10/07/16 09:00 11/06/16 08:59 10/07/16 09:32 Clonidine HCl (Catapres) 0.1 mg Q4H PRN ORAL For High Blood Pressure 10/06/16 22:30 11/05/16 22:29 Dextrose (Dextrose 50%) STAT PRN IV Hypoglycemia 10/06/16 22:30 11/05/16 22:29 Dextrose/Sodium Chloride (D5ns) 1,000 ml @ 150 mls/hr Q6H40M IV 10/06/16 22:00 11/05/16 21:59 10/07/16 17:33 Heparin Sodium (Porcine) (Heparin 5000 units/ml) 5,000 units EVERY 12 HOURS SUBQ 10/07/16 09:00 11/06/16 08:59 10/07/16 21:05 Lorazepam (Ativan 2mg/ml 1ml) 0.5 mg Q4H PRN IV For Anxiety 10/06/16 22:30 10/13/16 22:29 Morphine Sulfate (Morphine Sulfate) 1 mg EVERY 4 HOURS PRN IVP For Pain 10/07/16 01:00 10/14/16 00:59 Ondansetron HCl (Zofran) 4 mg Q6H PRN IVP Nausea & Vomiting 10/06/16 22:30 11/05/16 22:29 Polyethylene Glycol (Miralax) 17 gm HSPRN PRN ORAL Constipation 10/06/16 22:30 11/05/16 22:29 Tamsulosin HCl (Flomax) 0.4 mg Q12HR ORAL 10/07/16 09:00 11/06/16 08:59 10/07/16 21:02 Zolpidem Tartrate (Ambien) 5 mg HSPRN PRN ORAL Insomnia 10/06/16 22:30 11/05/16 22:29 10/07/16 21:02 SILVINA ORELLANA Oct 07, 2016 22:22
[2016-10-08] VITALS: BP 137/93
[2016-10-08 04:00] VITALS: BP 140/64
[2016-10-08] MEDS: D5NS 1,000 ML IV SCH ×2 (07:20→13:57)
[2016-10-08 07:27] LABS: BASOPHILS % (AUTO) 1.6 % (0.0-2.0); EOSINOPHILS % (AUTO) 5.9 % (0.0-3.0); LYMPHOCYTES % (AUTO) 33.7 % (20.0-45.0); MEAN CORPUSCULAR HEMOGLOBIN 29.5 PG (27.0-31.0); MEAN CORPUSCULAR HGB CONC 34.7 G/DL (32.0-36.0); MEAN CORPUSCULAR VOLUME 85 FL (80-99); MEAN PLATELET VOLUME 8.1 FL (6.5-10.1); MONOCYTES % (AUTO) 12.2 % (1.0-10.0); NEUTROPHILS % (AUTO) 46.5 % (45.0-75.0); PLATELET COUNT 227 K/UL (150-450); RED CELL DISTRIBUTION WIDTH 11.1 % (11.6-14.8); WHITE BLOOD COUNT 5.4 K/UL (4.8-10.8)
[2016-10-08 07:28] LABS: ALANINE AMINOTRANSFERASE 19 U/L (3-41); ALBUMIN/GLOBULIN RATIO 1.1 (1.0-2.7); ANION GAP 15 (5-15); ASPARTATE AMINO TRANSFERASE 20 U/L (5-40); CALCIUM 11.1 mg/dL (8.6-10.2); CARBON DIOXIDE 24 mEQ/L (20-30); CHLORIDE 101 mEQ/L (98-107); CREATININE 2.7 mg/dL (0.7-1.2); CRP QUANT 0.7 mg/dL (< 0.5); HEMOLYSIS 6; PHOSPHORUS 2.3 mg/dL (2.5-4.8); POTASSIUM 3.6 mEQ/L (3.4-4.9); SODIUM 140 mEQ/L (135-145); TOTAL PROTEIN 6.4 g/dL (6.6-8.7); URIC ACID 6.4 mg/dL (3.0-7.5)
[2016-10-08] MEDS: Heparin 5000 units/ml inj SUBQ SCH (08:10)
[2016-10-08] MEDS: Tamsulosin 0.4mg cap ORAL SCH (08:10)
[2016-10-08 08:32] VITALS: BP 130/74
--- NOTE | 2016-10-08 11:50 | General Progress Note ---
Assessment/Plan Status: stable Assessment/Plan ARF (acute renal failure), with possible underlying CKD Severe Hypercalcemia, improving Other: Dizziness Unsteady gait ARF (acute renal failure) Hypercalcemia Plan: Hydrate- Nasal Calcitonin IV Aredia given 10/05/16 Monitor Ca Phos and renal parameters- Kidney CHRISTOPHER- Right renal cyst. No evidence of obstructive nephropathy. Tiny peripheral calcification in the right kidney, nonspecific. This is doubtful to represent a nonobstructive stone One dose IV lasix again today Subjective ROS Limited/Unobtainable: No Constitutional: Reports: malaise, weakness Allergies: Coded Allergies: No Known Allergies (Unverified , 10/04/16) Objective Last 24 Hour Vital Signs Date Time Temp Pulse Resp B/P Pulse Ox O2 Delivery O2 Flow Rate FiO2 10/08/16 08:32 98.1 78 18 130/74 95 Room Air 10/08/16 04:00 98.6 82 18 140/64 96 Room Air 10/08/16 00:00 97.9 75 18 137/93 97 Room Air 10/07/16 20:00 99.1 82 18 140/80 96 Room Air 10/07/16 15:39 98.1 80 16 137/79 95 Room Air Intake and Output 10/07/16 10/08/16 19:00 07:00 Intake Total 2280 ml 1080 ml Output Total 500 ml Balance 2280 ml 580 ml Intake Oral 480 ml 480 ml IV Total 1800 ml 600 ml Output Urine Total 500 ml # Voids 1 1 # Bowel Movements 1 Laboratory Tests 10/08/16 06:00: White Blood Count 5.4, Red Blood Count 4.20L, Hemoglobin 12.4L, Hematocrit 35.7L , Mean Corpuscular Volume 85, Mean Corpuscular Hemoglobin 29.5, Mean Corpuscular Hemoglobin Concent 34.7, Red Cell Distribution Width 11.1L, Platelet Count 227, Mean Platelet Volume 8.1, Neutrophils (%) (Auto) 46.5, Lymphocytes (%) (Auto) 33.7, Monocytes (%) (Auto) 12.2H, Eosinophils (%) (Auto) 5.9H, Basophils (%) (Auto) 1.6, Sodium Level 140, Potassium Level 3.6, Chloride Level 101, Carbon Dioxide Level 24, Anion Gap 15, Blood Urea Nitrogen 30H, Creatinine 2.7H, Estimat Glomerular Filtration Rate , Glucose Level 114H, Uric Acid 6.4, Calcium Level 11.1H, Phosphorus Level 2.3L, Magnesium Level 2.0, Total Bilirubin 0.3, Aspartate Amino Transf (AST/SGOT) 20, Alanine Aminotransferase (ALT/SGPT) 19, Alkaline Phosphatase 71, C-Reactive Protein, Quantitative 0.7H, Pro-B-Type Natriuretic Peptide 1016H, Total Protein 6.4L, Albumin 3.4L, Globulin 3.0, Albumin/Globulin Ratio 1.1 Height (Feet): 5 Height (Inches): 8.00 Weight (Pounds): 160 General Appearance: no apparent distress Cardiovascular: normal rate Respiratory/Chest: decreased breath sounds Abdomen: soft Objective other physical exam not changed RAGHU ANGELO Oct 08, 2016 11:49
[2016-10-08 12:00] VITALS: BP 131/75
[2016-10-08] MEDS ORDERED: Potassium Phosphate 30 MM in NS 275 ML IV ONE (13:30)
[2016-10-08 16:00] VITALS: BP 134/80
[2016-10-08] MEDS ORDERED: D5NS 1000ml IV ONE (19:29)
[2016-10-08] MEDS ORDERED: NS Irrig 1000ml ONE (19:29)
[2016-10-11] MEDS ORDERED: CALCITONIN-SAL3.7 ML NS (15:08)
[2016-10-11] MEDS ORDERED: FLOMAX0.4 MG ORAL (15:08)
--- NOTE | 2016-10-11 15:09 | Discharge Summary ---
Discharge Summary Hospital Course Date of Admission Oct 04, 2016 at 12:05 Date of Discharge Oct 08, 2016 at 19:30 Admitting Diagnosis DIZZINESS, UNSTEADY GAIT HPI Will Coley is a 70 year old male who was admitted on Oct 04, 2016 at 12:05 for Poss Stroke,Dizzy,Head Throbbing Hospital Course dc summary # [id number] Discharge Medications New Medications: Calcitonin,[place],Synthetic (Calcitonin-[place]) 3.7 Ml [place].pump 3.7 ML NS DAILY, #1 SPRAYS Tamsulosin HCl (Flomax) 0.4 Mg Cap.er.24h 0.4 MG ORAL DAILY, #30 CAP Continued Medications: Cholecalciferol (Vitamin D3)* (Vitamin D*) 1,000 Unit Tablet Unknown Dose ORAL DAILY, #30 TAB Discharge Condition Upon Discharge: stable Discharge Disposition Patient was discharged to Home with Home Health(06) Discharge Diagnoses: Discharge Instructions Discharge Instructions Special Instructions I have been assigned to complete a D/C Summary on this account. I was not involved in the patient management Skye Beyer NP ([place]) Oct 11, 2016 15:09
--- NOTE | 2016-10-12 03:08 | Discharge Summary 2 SIG ---
DATE OF ADMISSION: 10/04/2016 DATE OF DISCHARGE: 10/08/2016 REASON FOR ADMISSION: 70-year-old male, presented to emergency department for evaluation by his weighter who was thinking that the patient was having a stroke. Television Installer reported that for the last five days, the patient was having frequent falls. He denied any slurred speech or facial droop. He denied any chest pain or shortness of breath. He denied any focal weakness. The patient's workup in the emergency room revealed CT of the head negative for any acute intracranial pathology. Chest x-ray was negative for any acute cardiopulmonary disease. EKG revealed normal sinus rhythm. No leukocytosis, stable hemoglobin and hematocrit, creatinine up to 3.2, troponin was negative, severely elevated calcium of 15.1 on admission. Patient was admitted for further management. INITIAL DIAGNOSES: status post fall dizziness unsteady gait acute renal failure acute hypercalcemia HOSPITAL STAY: Patient was admitted . CT head was negative for any acute intracranial pathology ,no focal neuro deficits. Hr Specialist and director of vocational guidance were involved in care of this patient. Per heat regulator, the patient was started on IV fluids. Nasal calcitonin and IV Aredia were given to manage hypercalcemia. Calcium trending down, upon discharge-11.1. Continue calcitonin. The patient needs to be closely monitored : calcium and phosphorus level as well as the renal parameters. Renal ultrasound revealed no obstructive nephropathy. Creatinine was slightly down from admission of 3.2 to upon discharge 2.7, so likely element of chronic renal insufficiency along with acute renal failure. Lasix x2 given , BNP trending down. Button Attaching Machine Operator seen the patient as well. He recommended continued IV hydration. Telemetry was negative. The patient started to work with physical and occupational therapists. Orthostatic vital signs were checked, no changes. Electrolytes were stable except calcium. Hypercalcemia workup initiated by nephro. TSH was stable. PTH was stable. Cortisol was within normal limits. UA was stable. After the doses of Lasix, pro BNP trending down from 1,873 to 1,016. Lipid panel with borderline LDL of 100, total cholesterol of 165, and triglycerides elevated at 185. The patient's caregiver was educated on low-fat cardiac diet. Fall precautions were maintained . ECHO and Carotid Duplex were ordered but patient declined. Home health was arranged. The patient will need close monitoring of calcium level and additional workup for hypercalcemia if no further trend down. DISCHARGE DIAGNOSES: 1. Status post recurrent falls. 2. Acute renal failure/acute tubular necrosis with possible underlying chronic kidney disease. 3. Status post blunt head trauma. 4. Acute encephalopathy. 5. Acute hypercalcemia, Of note, DISCHARGE MEDICATIONS: See medication reconciliation list. DISCHARGE INSTRUCTIONS: The patient discharged home with home health. The patient to follow up with the primary medical doctor. Jovan Arceo I have been assigned to dictate discharge summary on this account and I was not involved in the patient's management. Skye OrtizMorgan Stanley Children'S HospitalMaximo N.PYissel DR: PARK JOB#: [id number] CC: ESE
== END 2016-10-08 19:30 | disposition home health service (06) | DRG 682 ==
LOC: EMR 11:40 → EDBEDREQ 11:59 → 2E 12:05 → EDBEDREQ 12:21 → 2E 19:25 → 3E 10-06 21:21
DX: N17.0 Acute kidney failure with tubular necrosis (principal); G93.41 Metabolic encephalopathy; E83.52 Hypercalcemia; R26.9 Unspecified abnormalities of gait and mobility; Z91.81 History of falling; R42 Dizziness and giddiness; N18.9 Chronic kidney disease, unspecified; N28.1 Cyst of kidney, acquired
CPT/HCPCS: 36415; 70450; 71010; 76775; 80053; 80061; 81001; 82533; 82550; 82553; 82962; 82977; 83036; 83735; 83880; 83930; 83935; 83970; 84100; 84439; 84443; 84481; 84484; 84550; 85025; 85610; 85730; 86140; 89050; 93005; J2430; J8499